=== PATIENT | female | born 2005 | race African-American/Black ===

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

== ENCOUNTER 2025-03-24 17:38 | Emergency (ER) | payer OTHER, SELFPAY ==
[~2025-03-24] VITALS: Ht 160 cm; Wt 53.2 kg
[2025-03-24] MEDS ORDERED: NS (Normal Saline) 0.9% 1,000 ML IV ONE (17:55)
[2025-03-24 18:15] LABS: BASO # 0.0 10^3/uL (0.0-0.2); BASO % 0.2 % (0.0-1.0); EOS # 0.0 10^3/uL (0.0-0.5); EOS % 0.1 % (0.0-3.0); LYMPH # 0.6 10^3/uL (1.5-5.0); LYMPH % 5.4 % (24.0-44.0); MONO # 0.6 10^3/uL (0.0-0.8); MONO % 5.6 % (2.0-8.0); NEUTROPHILS # 9.0 10^3/uL (1.5-8.5); NEUTROPHILS % 88.3 % (36.0-66.0); PLATELET COUNT, AUTOMATED 351 10^3/uL (150-450)
[2025-03-24 18:32] LABS: ALT/SGPT < 9 U/L (7.0-40); AST/SGOT 17 U/L (<34); CALCIUM LEVEL 9.1 MG/DL (8.5-10.1); CARBON DIOXIDE LEVEL 25 MMOL/L (20-31); CHLORIDE LEVEL 103 MMOL/L (98-107); CREATININE FOR GFR 0.77 MG/DL (0.55-1.30); GLOMERULAR FILTRATION RATE > 90.0 (>60); POTASSIUM SERUM 3.6 MMOL/L (3.5-5.1); SODIUM LEVEL 138 MMOL/L (136-145)
[2025-03-24 18:41] LABS: KETONE, URINE AUTO RFX 1+ mg/dL (NEGATIVE); LEUKOCYTE ESTERASE UR AUTO RFX TRACE (NEGATIVE); MUCUS, URINE RFX SMALL (NEGATIVE); NITRITE, URINE AUTO RFX POSITIVE (NEGATIVE); RBC, URINE AUTO RFX 2 /HPF (0-3); SQUAM EPITHELIAL CELL UR AURFX 45 /HPF (0-6); WBC, URINE AUTO RFX 3 /HPF (0-3)
[2025-03-24 18:43] LABS: HCG, SERUM QUALITATIVE NEGATIVE (NEGATIVE)
[2025-03-24] MEDS: NS (Normal Saline) 0.9% 1,000 ML IV ONE (20:54)
[2025-03-24] MEDS: ACETAMINOPHEN *IV* 1,000 MG in IV 1 EA IV ONE (20:54)
[2025-03-24] MEDS ORDERED: ISOVUE-370 76% 100 ML VIAL As Ordered ONE (21:10)
[2025-03-24 21:45] VITALS: TEMP 98.4
[2025-03-24] MEDS ORDERED: SULF-7 PO (22:38)
[2025-03-24] MEDS: cefTRIAXone SOD 1 GM in DEXTROSE 5% (D5W) ADV/MINI-BAG 50 ML IV ONE (22:44)
[2025-03-24 22:45] VITALS: BP 122/73; O2SAT 97
== END 2025-03-24 23:06 | disposition home or self-care (01) ==
LOC: M ED 17:38
DX: N39.0 Urinary tract infection, site not specified (principal); Z88.0 Allergy status to penicillin; N83.292 Other ovarian cyst, left side
CPT/HCPCS: 74177; 80048; 80076; 81001; 83605; 83690; 84145; 84703; 85025; 87088; 87186; 87486; 87581; 87633; 87798; 96365; 96366; 96367; 99284; J0134; J0696; Q9967